=== PATIENT | male | born 1955 | race Hispanic/Latino ===

== ENCOUNTER 2020-06-21 22:33 | Emergency (ER) | payer SELFPAY ==
--- NOTE | 2020-06-21 22:57 | RAD ---
EXAM: Single view of the chest HISTORY: Chest pain after trauma COMPARISON: 02/17/2013 FINDINGS: Single view of the chest shows a normal sized cardiomediastinal silhouette. Atheroscleroti c calcifications are seen in the aorta. Interstitial markings are present. Atelectasis versus infiltrate is seen in the left lung base. No acute osseous abnormality. IMPRESSION: Left basilar atelectasis versus infiltrate.
[2020-06-21 23:03] LABS: #Eosinphils 0.2 thou/uL (0.0-0.7); #Lymphocytes 2.2 thou/uL (1.20-3.40); #Monocytes 0.5 thou/uL (0.11-0.59); #Neutrophils 3.8 thou/uL (1.40-6.50); %Basophils 0.3 % (0.0-1.0); %Eosinophils 2.7 % (0.0-10.0); %Lymphocytes 33.2 % (21.0-51.0); %Neutrophils 56.9 % (42.0-75.0); Hemoglobin 17.8 g/dL (14.0-18.0); Mean Corpuscular HGB CONC 34.8 g/dL (32.0-36.0); Mean Platelet Volume 7.1 fL (7.4-10.4); Platelet Count 214 thou/uL (130-400); RBC Distribution Width 12.3 % (11.5-14.5); Red Blood Cell (RBC) Count 5.56 mill/uL (4.70-6.10); White Blood Cell (WBC) Count 6.7 thou/uL (4.8-10.8)
--- NOTE | 2020-06-21 23:04 | CT ---
EXAM: CT brain without contrast HISTORY: Fall backwards with head laceration COMPARISON: 02/17/2013 TECHNIQUE: Multiple contiguous axial images were obtained and a CT of the brain without contrast. FINDINGS: There are scattered hypodensities in the subcortical and periventricular white matter consi stent with small vessel ischemic disease. There is no evidence of hydrocephalus, intracranial hemorrhage, or extra-axial fluid collection. Mild soft tissue swelling is seen in the posterior scalp. The underlying calvarium is unremarkable. F luid is seen in the left mastoid air cells. The visualized paranasal sinuses and right mastoid air cells are well aerated. IMPRESSION: No evidence of acute intracranial abnormality Dr. Whitfield notified of findings at 11:03 PM on 06/21/2020.
--- NOTE | 2020-06-21 23:06 | CT ---
EXAM: CT of the cervical spine without contrast HISTORY: Fall with head trauma and neck pain COMPARISON: None TECHNIQUE: Multiple contiguous axial images were obtained in a CT of the cervical spine without contr ast. Sagittal and coronal reformats were performed. FINDINGS: There is fusion of the C2 and C3 vertebral bodies. The vertebral bodies demonstrate normal height and alignment without fracture or subluxation. Mild diffuse degenerative changes are present. No prevertebral soft tissue swelling is seen. The posterior facets are well aligned. Normal alignment of the skull base with the cervical spine is seen. The lung apices and cervical soft tissues are unremarkable. IMPRESSION: No evidence of acute osseous abnormality of the cervical spine. Dr. Whitfield notified of findings at 11:03 PM on 06/21/2020.
[2020-06-21 23:10] LABS: PTT 28.6 sec (22.9-36.1); Prothrombin Time 13.1 sec (12.0-14.7)
[2020-06-21] MEDS ORDERED: Boostrix 0.5 ML (Tdap) VIAL ONE (23:14)
[2020-06-21 23:26] LABS: ALT (SGPT) 36 U/L (8-55); AST (SGOT) 31 U/L (5-34); Albumin 4.3 g/dL (3.4-4.8); Alcohol 341 mg/dL (Less than 10); Alkaline Phosphatase 83 U/L (40-110); Anion Gap 17 mmol/L (10-20); BUN (Urea Nitrogen) 5 mg/dL (8.4-25.7); Bilirubin, Total 0.4 mg/dL (0.2-1.2); Calc. Creatinine Clearance 0 mL/min (70-130); Calcium 9.1 mg/dL (7.8-10.44); Carbon Dioxide 24 mmol/L (23-31); Chloride 106 mmol/L (98-107); Globulin 3.7 g/dL (2.4-3.5); Glucose 139 mg/dL (80-115); Potassium 3.5 mmol/L (3.5-5.1); Sodium 143 mmol/L (136-145)
[2020-06-22] MEDS ORDERED: Bacitracin 1 PK ONE (00:10)
== END 2020-06-22 00:15 | disposition home or self-care (01) ==
LOC: EDBD 22:33 → ERS 22:33
DX: S01.01XA Laceration without foreign body of scalp, initial encounter (principal); F10.129 Alcohol abuse with intoxication, unspecified; Y90.8 Blood alcohol level of 240 mg/100 ml or more; W19.XXXA Unspecified fall, initial encounter
CPT/HCPCS: 70450; 71045; 72125; 80053; 80307; 85025; 85610; 85730; 90471; 90715; 93005; G0390